=== PATIENT | male | born 1970 | race Caucasian/White ===

== ENCOUNTER 2018-02-20 12:07 | Emergency (ER) | payer BC ==
[~2018-02-20] VITALS: Ht 177.8 cm; Wt 96.1 kg
[2018-02-20 13:37] LABS: HEMATOCRIT 45.2 % (38.0-50.0); HEMOGLOBIN 15.5 G/DL (12.5-16.6); MCH 29.9 PG (29.0-34.0); MCHC 34.3 G/DL (30.0-36.0); MCV 87.3 FL (86-99); PLATELET COUNT 305 K/uL (156-360); RBC DIS.WIDTH-CV 12.7 % (11.8-14.6); RBC DIS.WIDTH-SD 40.5 % (39-53); RED BLOOD COUNT 5.18 M/uL (4.00-5.50); WHITE BLOOD COUNT 6.6 K/uL (4.1-10.2)
[2018-02-20 13:53] LABS: CHLORIDE 105 mEq/L (99-109); POTASSIUM 3.9 mEq/L (3.7-5.4); SODIUM 139 mEq/L (136-147)
[2018-02-20 13:54] LABS: GLUCOSE 89 mg/dL (70-99)
[2018-02-20 13:58] LABS: CREATININE 0.9 mg/dL (0.6-1.3); GFR ESTIMATE (CALCULATED) > 59 mL/min/ (58.99-99999)
[2018-02-20 13:59] LABS: UREA NITROGEN (BUN) 18 mg/dL (9-23)
[2018-02-20 14:01] LABS: CREATINE KINASE 103 IU/L (1-294); TOTAL CK 103 IU/L (1-294)
[2018-02-20 14:08] LABS: CK-MB 2.6 ng/mL (0.0-4.9); CKMB RELATIVE INDEX 2.5 (0.0-3.9)
[2018-02-20 14:26] LABS: D-DIMER LATEX NEGATIVE
[2018-02-20 14:50] LABS: SCHISTOCYTES NONE SEEN
[2018-02-20 15:10] VITALS: BP 135/83
== END 2018-02-20 15:10 | disposition home or self-care (01) ==
LOC: EME 12:07
PROVIDERS: Nurse Practitioner Family
DX: T63.011A Toxic effect of rattlesnake venom, accidental (unintentional), initial encounter (principal); S81.832A Puncture wound without foreign body, left lower leg, initial encounter; R94.31 Abnormal electrocardiogram [ECG] [EKG]; X58.XXXA Exposure to other specified factors, initial encounter; Y93.01 Activity, walking, marching and hiking; Y92.828 Other wilderness area as the place of occurrence of the external cause; K21.9 Gastro-esophageal reflux disease without esophagitis
CPT/HCPCS: 80048; 81003; 82550; 82553; 85027; 85378; 85610; 85730; 93005; 99281; 99285